=== PATIENT | female | born 1985 | race Caucasian/White ===

== ENCOUNTER 2016-11-21 16:17 | Emergency (ER) | payer MEDICAID ==
[2016-11-21] MEDS ORDERED: HYDROmorphone 0.5 MG/0.5 ML Syringe IVPUSH ONE (17:11)
[2016-11-21] MEDS ORDERED: Ketorolac 30 MG/ML SDV IVPUSH ONE (17:12)
--- NOTE | 2016-11-21 17:13 | EDM.PDOC ---
ED HPI GENERAL MEDICAL PROBLEM - General Chief Complaint: Abdominal Pain Stated Complaint: Pelvic pain Time Seen by Provider: 11/21/16 17:00 Source of Information: Reports: Patient, Old Records, RN Notes Reviewed History Limitations: Reports: No Limitations - History of Present Illness INITIAL COMMENTS - FREE TEXT/NARRATIVE: 31 year old female presents to the ED today with complaints of severe, worsening , sharp, left pelvic pain. She was evaluated in the clinic today by Caryl ROJAS. She was found to have a large left ovarian cyst. She was discharged on Tylenol #3 and instructions to f/u next week. 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 She was diaphoretic and "shaking." She is 3 para 2. She has a history of 1 miscarriage. She has a history of ovarian cysts and left ovarian torsion. She feels mildly nauseated. No vomiting. She reports 2-3 week history of frequency and urgency with urination. No fever or chills. Workup in clinic today included CBC, CMP, CRP, and UA. Labs were normal except urine reveals trace leukocytes. This was sent for culture. Antibiotics were not ordered. Hcg was negative. She had a nonOB transvaginal ultrasound. She is scheduled to see Meliza Samples on Friday of next week followed by Dr. Malhotra on Friday if needed. Left Lower Abdomen Pain Score (Numeric/FACES): 2 - Related Data Allergies Allergy/AdvReac Type Severity Reaction Status Date / Time nickel Allergy Rash Verified 10/07/14 12:08 tramadol Allergy Itching Verified 10/07/14 12:08 Home Meds: Home Meds Acetaminophen/oxyCODONE [Percocet 325-5 MG] 2 tab PO Q4H PRN #45 tablet [Rx] Ibuprofen [Motrin] 600 mg PO Q6H PRN #0 tablet 09/09/14 [Rx] Minocycline [Minocin] 100 mg PO BID #20 cap 10/07/14 [Rx] Ibuprofen 800 mg PO TID PRN #30 tablet 11/21/16 [Rx] oxyCODONE HCl/Acetaminophen [Oxycodone-Acetaminophen 5-325] 1 - 2 each PO Q4H PRN #20 tablet 11/21/16 [Rx] Past Medical History HEENT History: Reports: Impaired Vision Cardiovascular History: Reports: High Cholesterol Other Genitourinary History: none 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 Denies: Fever, Chills Respiratory: Reports: No Symptoms. Denies: Shortness of Breath Cardiovascular: Reports: No Symptoms. Denies: Chest Pain GI/Abdominal: Reports: Nausea. Denies: Constipation, Diarrhea, Vomiting : Reports: Frequency, Urgency, Other (pelvic pain). Denies: Flank Pain ED EXAM, RENAL/ - Physical Exam Exam: See Below Exam Limited By: No Limitations General Appearance: Alert, WD/WN, Anxious, Mild Distress Respiratory/Chest: No Respiratory Distress, Lungs Clear, Normal Breath Sounds Cardiovascular: Regular Rate, Rhythm GI/Abdominal: Normal Bowel Sounds, Soft, Non-Tender (Female) Exam: Other (tendeness with palpation to left pelvic region ) Back Exam: Normal Inspection, Full Range of Motion. No: CVA Tenderness (L), CVA Tenderness (R) Course - Vital Signs Last Recorded V/S: Last Vital Signs Temp 97.6 F 11/21/16 16:21 Pulse 60 11/21/16 16:21 Resp 12 11/21/16 16:21 BP 110/83 11/21/16 16:21 Pulse Ox 100 11/21/16 16:21 - Orders/Labs/Meds Labs: Laboratory Tests 11/21/16 Range/Units 17:22 Urine Color Yellow (Yellow) Urine Appearance Slt cloudy H (Clear) Urine pH 8.0 (5.0-8.0) Ur Specific [place] 1.025 (1.005-1.030) Urine Protein Negative (Negative) Urine Glucose (UA) Negative (Negative) Urine Ketones Negative (Negative) Urine Occult Blood Negative (Negative) Urine Nitrite Negative (Negative) Urine Bilirubin Negative (Negative) Urine Urobilinogen 0.2 (0.2-1.0) Ur Leukocyte Esterase Negative (Negative) Urine RBC 0-5 (0-5) /hpf Urine WBC 0-5 (0-5) /hpf Ur Epithelial Cells 0-5 (0-5) /hpf Amorphous Sediment Moderate H (NOT SEEN) /hpf Urine Bacteria Rare (FEW) /hpf Urine Mucus Not seen (FEW) /hpf Meds: Medications Discontinued Medications Generic Name Dose Route Start Last Admin Trade Name Freq PRN Reason Stop Dose Admin Hydromorphone HCl 0.5 mg 11/21/16 17:11 11/21/16 17:24 Dilaudid IVPUSH 11/21/16 17:12 0.5 mg ONETIME ONE Administration Ketorolac Tromethamine 30 mg 11/21/16 17:12 11/21/16 17:27 Toradol IVPUSH 11/21/16 17:13 30 mg ONETIME ONE Administration Ondansetron HCl 4 mg 11/21/16 18:46 Zofran Odt PO 11/21/16 18:47 ONETIME ONE - Re-Assessments/Exams Free Text/Narrative Re-Assessment/Exam: Reviewed labs from clinic visit today. Repeat UA ordered as patient had trace leukocyte and does have symptoms. UA is negative. Repeat ultrasound was ordered to evaluate for possibility of ruptured cyst or ovarian torsion. US read by Dr. Courtney, impression: 1. Stable cyst within the left adnexa or ovary from previous study performed earlier on the same day. Minimal fluid is seen next to the cyst which is stable. 2. Other portions of the ovaries are also stable. Patient reassured. Will place her on Ibuprofen and Percocet. She was thoroughly educated on medication side effects. Instructed to f/u as directed. Discharge instructions as documented. Departure - Departure Time of Disposition: 18:45 Disposition: Home, Self-Care 01 Condition: Good Clinical Impression: Ovarian cyst Qualifiers: Laterality: left Qualified Code(s): N83.202 - Unspecified ovarian cyst, left side - Discharge Information Prescriptions: Ibuprofen 800 mg PO TID PRN #30 tablet PRN Reason: Pain oxyCODONE HCl/Acetaminophen [Oxycodone-Acetaminophen 5-325] 1 - 2 each PO Q4H PRN #20 tablet PRN Reason: Pain Referrals: Meliza Ramos PA [Primary Care Provider] - Forms: ED Department Discharge Additional Instructions: Rest, heating pad to abdomen as tolerated Ibuprofen 800mg 3 times a day consistently for 5-7 days Percocet 1-2 tabs every 4-6 hours as needed for pain not relieved by Ibuprofen Follow-up with Meliza Ramos and Dr. Malhotra as scheduled next week Return to Er with any new or worsening symptoms No driving today No driving for at least 6-8 hours after taking Percocet
--- NOTE | 2016-11-21 18:34 | US ---
Pelvic ultrasound: Multiple real-time images were obtained transvaginally. Comparison: Previous pelvic ultrasound performed earlier on the same date (1:20 PM) Left adnexal or ovarian cyst is again seen. This measures 7.1 x 4.7 x 7.8 cm. This cyst is felt to be fairly stable from prior study when allowing for slight differences in measurement technique. Cyst shows a small amount of debris. Minimal free fluid is seen next to the cyst which is stable. Right ovary is unremarkable. Impression: 1. Stable cyst within the left adnexa or ovary from previous study performed earlier on the same day. Minimal fluid is seen next to the cyst which is stable. 2. Other portions of the ovaries are also stable. Diagnostic code #3
[2016-11-21] MEDS ORDERED: Ondansetron 4 MG Tab.DIS PO ONE (18:46)
[2016-11-21 19:18] VITALS: BP 117/75
== END 2016-11-21 19:15 | disposition home or self-care (01) ==
LOC: JD.ED 16:17 → SUPCPDRO 16:17 → JD.ED 19:15
DX: N83.202 Unspecified ovarian cyst, left side (principal); E78.00 Pure hypercholesterolemia, unspecified; M19.90 Unspecified osteoarthritis, unspecified site; Z79.899 Other long term (current) drug therapy; Z88.8 Allergy status to other drugs, medicaments and biological substances; Z91.048 Other nonmedicinal substance allergy status
CPT/HCPCS: 76857; 81001; 96374; 96375; 99285; A9270; J1170; J1885; 99284

== ENCOUNTER 2017-09-01 00:47 | Emergency (ER) | payer MEDICAID ==
[2017-09-01 00:57] VITALS: BP 141/99
--- NOTE | 2017-09-01 03:17 | EDM.PDOC ---
ED HPI GENERAL MEDICAL PROBLEM - General Chief Complaint: Laceration Stated Complaint: RIGHT INDEX FINGER CUT Time Seen by Provider: 09/01/17 03:06 Source of Information: Reports: Patient History Limitations: Reports: No Limitations - History of Present Illness INITIAL COMMENTS - FREE TEXT/NARRATIVE: The patient states that she suffered a laceration to the tip of her right index finger when using a mandolin, cutting rhubarb at home, around 23:30. She came to the ED because she could not get the bleeding to stop, however, here in the ED, the bleeding has stopped. She is otherwise uninjured. The patient is not certain when her last tetanus vaccination was, but she is certain that her vaccinations are up-to-date. The patient's PCP is Maricel Garcia. 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 Exploratory laparoscopy for endometriosis (none found).) Social & Family History - Family History Family Medical History: Noncontributory - Tobacco Use Smoking Status *Q: Never Smoker Second Hand Smoke Exposure: No - Caffeine Use Caffeine Use: Reports: None - Alcohol Use Alcohol Use History: Yes Alcohol Use Frequency: Socially - Recreational Drug Use Recreational Drug Use: No - Living Situation & Occupation Living situation: Reports: , with Spouse, with Family (2 kids) Occupation: Unemployed ED ROS GENERAL - Review of Systems Review Of Systems: ROS reveals no pertinent complaints other than HPI. ED EXAM, SKIN/RASH Exam: See Below Exam Limited By: No Limitations General Appearance: Alert, WD/WN, No Apparent Distress Extremities: Other (Tiny avulsion laceration, measuring only about 2 mm across, at the tip of the right second finger. There is a small flap of skin still attached, that appears to be devitalized. The nail is not involved. Neurovascular status of the right second finger is intact.) Course - Vital Signs Last Recorded V/S: Last Vital Signs Temp 37.1 C 09/01/17 00:54 Pulse 84 09/01/17 00:54 Resp 18 09/01/17 00:54 BP 141/99 H 09/01/17 00:54 Pulse Ox 97 09/01/17 00:54 - Re-Assessments/Exams Free Text/Narrative Re-Assessment/Exam: 09/01/17 03:13 The laceration to the tip of the patient's right index finger is really a small avulsion laceration. There is a small piece of skin attached to the edge of the wound, but it is devascularized and will not survive. The wound is far too small to place a suture through it. We had considered applying Dermabond, however, I suspect that more glue would get into the wound than on it. I'm recommending a simple bandage to protect the sensitivity of the tip of the finger, which should improve over the next few days. Departure - Departure Time of Disposition: 03:14 Disposition: Home, Self-Care 01 Condition: Good Clinical Impression: Laceration of finger of right hand without damage to nail - Discharge Information Instructions: Laceration Care, Adult Referrals: Maricel Garcia PA-C [Primary Care Provider] - Forms: ED Department Discharge Additional Instructions: You were seen in the emergency room for a laceration to the tip of your right index finger. On evaluation, the wound is too small to suture, and the small piece of skin that was cut will not survive. The wound clean with ordinary soap and water. Pat dry, then protect the tip with an ordinary Band-Aid, daily. Replace the Band-Aid if it gets dirty. Take [id number] Tylenol or ibuprofen as needed for discomfort. If any other problems, please do not hesitate to return to the ER.
== END 2017-09-01 03:23 | disposition home or self-care (01) ==
LOC: JD.ED 00:47
DX: S61.210A Laceration without foreign body of right index finger without damage to nail, initial encounter (principal); Z91.09 Other allergy status, other than to drugs and biological substances; Z88.6 Allergy status to analgesic agent; W22.8XXA Striking against or struck by other objects, initial encounter
CPT/HCPCS: 99282; 99283

== ENCOUNTER 2017-11-30 14:11 | Emergency (ER) | payer MEDICAID ==
[2017-11-30 14:36] VITALS: BP 120/84
--- NOTE | 2017-11-30 15:12 | EDM.PDOC ---
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 Patient is approximately 5 weeks . Her last menstrual period October 17. She is a . She had a D&C at 8 weeks due to a miscarriage. States this is a planned . She has an appointment to see her OB on December 29. OB will be Dr. Myers. She has not yet seen an OB for this . Review of her records show that she is blood type A positive. Patient reports this morning she woke up and experience cramping to her right groin. She states it is improving, pain currently 2/10. She has also appreciated blood which was on her panty liner. She states that the bleeding is improving as well. She is reporting nausea but no lightheadedness, dizziness, vomiting or any syncope. She states that she has a history of having cyst with that resolved further along in her . Previous surgeries include a , cystectomy and ex lap for possible endometriosis. 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 Other Musculoskeletal History: arthritis Psychiatric History: Reports: Anxiety, Depression - Past Surgical History HEENT Surgical History: Reports: Oral Surgery Female Surgical History: Reports: Section, D&C, Other (See Below) Social & Family History - Family History Family Medical History: Noncontributory - Tobacco Use Smoking Status *Q: Never Smoker - Caffeine Use Caffeine Use: Reports: Coffee - Recreational Drug Use Recreational Drug Use: No - Living Situation & Occupation Living situation: Reports: , with Spouse, with Family (2 kids) Occupation: Unemployed ED ROS GENERAL - Review of Systems Review Of Systems: See Below GI/Abdominal: Reports: Nausea. Denies: Abdominal Pain, Vomiting : Reports: Pain (right pelvis). Denies: Dysuria Neurological: Denies: Dizziness, Syncope ED EXAM - Physical Exam Exam: See Below Exam Limited By: No Limitations General Appearance: Alert, WD/WN, No Apparent Distress Respiratory/Chest: No Respiratory Distress, Lungs Clear, Normal Breath Sounds Cardiovascular: Normal Peripheral Pulses, Regular Rate, Rhythm, No Murmur GI/Abdominal Exam: Normal Bowel Sounds, Soft, Non-Tender (Female) Exam: Normal Speculum Exam, Vaginal Bleeding, Other (gravid cervix) . No: Cervical Dilatation, Products of Conception Neurological: Alert, Oriented, Normal Cognition Psychiatric: Normal Affect, Normal Mood Skin Exam: Warm, Dry, Normal Color Course - Vital Signs Last Recorded V/S: Last Vital Signs Temp 98.2 F 11/30/17 14:35 Pulse 71 11/30/17 14:35 Resp 20 11/30/17 14:35 BP 120/84 11/30/17 14:35 Pulse Ox 100 11/30/17 14:35 - Orders/Labs/Meds Orders: Active Orders 24 hr Category Date Time Status Pelvic Exam, Set Up [RC] ASDIRECTED Care 11/30/17 16:49 Ordered OB Transvaginal [US] Stat Exams 11/30/17 15:31 Taken CULTURE URINE [RM] Stat Lab 11/30/17 17:12 Ordered UA W/MICROSCOPIC [URIN] Stat Lab 11/30/17 15:41 Ordered Labs: Laboratory Tests 11/30/17 11/30/17 11/30/17 Range/Units 15:15 15:15 15:41 WBC 7.49 (3.98-10.04) K/mm3 RBC 4.65 (3.98-5.22) M/mm3 Hgb 14.6 (11.2-15.7) gm/L Hct 43.7 (34.1-44.9) % MCV 94.0 (79.4-94.8) fl MCH 31.4 (25.6-32.2) pg MCHC 33.4 (32.2-35.5) g/dl RDW Std Deviation 42.1 (36.4-46.3) fL Plt Count 293 (182-369) K/mm3 MPV 9.7 (9.4-12.3) fl Neut % (Auto) 65.5 (34.0-71.1) % Lymph % (Auto) 24.7 (19.3-51.7) % [place] % (Auto) 7.7 (4.7-12.5) % Eos % (Auto) 0.9 (0.7-5.8) Baso % (Auto) 1.1 (0.1-1.2) % Neut # (Auto) 4.90 (1.56-6.13) K/mm3 Lymph # (Auto) 1.85 (1.18-3.74) K/mm3 [place] # (Auto) 0.58 H (0.24-0.36) K/mm3 Eos # (Auto) 0.07 (0.04-0.36) K/mm3 Baso # (Auto) 0.08 (0.01-0.08) K/mm3 HCG, Quant 192.0 mIU/mL Urine Color Yellow (Yellow) Urine Appearance Clear (Clear) Urine pH 6.5 (5.0-8.0) Ur Specific [place] 1.020 (1.005-1.030) Urine Protein Negative (Negative) Urine Glucose (UA) Negative (Negative) Urine Ketones Negative (Negative) Urine Occult Blood 3+ H (Negative) Urine Nitrite Negative (Negative) Urine Bilirubin Negative (Negative) Urine Urobilinogen 0.2 (0.2-1.0) Ur Leukocyte Esterase Negative (Negative) Urine RBC 0-5 (0-5) /hpf Urine WBC 0-5 (0-5) /hpf Ur Epithelial Cells 0-5 (0-5) /hpf Urine Bacteria Not seen (FEW) /hpf Urine Mucus Not seen (FEW) /hpf - Radiology Interpretation Free Text/Narrative:: Transvaginal ultrasound impression per vrad: gestational sac within uterus without evidence of a pole. Considerations would include early , however other etiologies such as miscarriage or ectopic cannot be completely excluded. - Re-Assessments/Exams Free Text/Narrative Re-Assessment/Exam: 11/30/17 17:00 Reviewed the labs and imaging with the patient. She states she is only having minor discomfort now. The pain as a 1 or 2 out of 10. She states that this does feel similar to cysts she's had in the past. Plan will be to perform a pelvic exam. I will then Contact OB on-call. 11/30/17 17:[address] Malhotra. Recommend pelvic rest, follow up in clinic Friday or Friday. Reviewed this with the patient. Will discharge home. Discharge instructions as documented. Departure - Departure Time of Disposition: 17:15 Disposition: Home, Self-Care 01 Condition: Fair Clinical Impression: Vaginal bleeding during - Discharge Information *PRESCRIPTION DRUG MONITORING PROGRAM REVIEWED*: No *COPY OF PRESCRIPTION DRUG MONITORING REPORT IN PATIENT DOROTEO: No Referrals: Maricel Garcia PA-C [Primary Care Provider] - Vijaya Myers MD [Physician] - Forms: ED Department Discharge Additional Instructions: Pelvic rest. Make sure you are drinking plenty of fluids. Follow-up with Dr. Myers Friday or Friday. you will need to have your labs rechecked. May take [id number] Tylenol as needed pain. Please return to the ER for symptoms change or worsen. - My Orders Last 24 Hours: My Active Orders 11/30/17 15:31 OB Transvaginal [US] Stat 11/30/17 15:41 UA W/MICROSCOPIC [URIN] Stat 11/30/17 16:49 Pelvic Exam, Set Up [RC] ASDIRECTED 11/30/17 17:12 CULTURE URINE [RM] Stat - Assessment/Plan Last 24 Hours: My Active Orders 11/30/17 15:31 OB Transvaginal [US] Stat 11/30/17 15:41 UA W/MICROSCOPIC [URIN] Stat 11/30/17 16:49 Pelvic Exam, Set Up [RC] ASDIRECTED 11/30/17 17:12 CULTURE URINE [RM] Stat
== END 2017-11-30 17:34 | disposition home or self-care (01) ==
LOC: JD.ED 14:11
DX: O20.9 Hemorrhage in early pregnancy, unspecified (principal); O99.341 Other mental disorders complicating pregnancy, first trimester; F41.9 Anxiety disorder, unspecified; F32.9 Major depressive disorder, single episode, unspecified; O99.281 Endocrine, nutritional and metabolic diseases complicating pregnancy, first trimester; E78.00 Pure hypercholesterolemia, unspecified; Z3A.01 Less than 8 weeks gestation of pregnancy; Z79.899 Other long term (current) drug therapy; Z88.5 Allergy status to narcotic agent; Z88.8 Allergy status to other drugs, medicaments and biological substances
CPT/HCPCS: 36415; 76817; 81001; 84702; 85025; 87086; 99284-25

== ENCOUNTER 2018-09-18 05:36 | Inpatient (IN) | payer MEDICAID ==
[~2018-09-18 05:36] MED LIST: Sodium Chloride 0.9% 10 ML Syringe FLUSH PRN
[2018-09-18] MEDS ORDERED: Citric Acid/Sodium Citrate Solution 30 ML Cup PO ONE (06:30)
[2018-09-18] MEDS ORDERED: Metoclopramide 10 MG/2 ML SDV IVPUSH ONE (06:30)
[2018-09-18] MEDS: Lactated Ringers 1,000 ML IV SCH ×4 (06:45→17:16)
[2018-09-18] MEDS ORDERED: Nalbuphine 10 MG/1 ML Vial IVPUSH PRN (07:00)
[2018-09-18] MEDS ORDERED: Ondansetron 4 MG/2 ML SDV IVPUSH PRN ×2 (07:00→07:23)
--- NOTE | 2018-09-18 07:10 | PCM.PNLD ---
Labor Progress Note - VS & Meds Vital Signs: Last Vital Signs Temp 36.6 C 09/18/18 05:45 Pulse 84 09/18/18 05:45 Resp 16 09/18/18 05:45 BP 121/86 09/18/18 05:45 Pulse Ox 98 09/18/18 05:45 Active Medications: Current Medications Lactated Ringer's (Ringers, Lactated) 1,000 mls @ 125 mls/hr IV ASDIRECTED [facility] Last Admin: 09/18/18 06:45 Dose: 125 mls/hr Oxytocin/Lactated Ringer's (Pitocin In Lr 10 Units/1,000 Ml) 10 unit in 1,000 mls @ 100 mls/hr IV ASDIRECTED NASEEM Sodium Chloride (Saline Flush) 10 ml FLUSH ASDIRECTED PRN PRN Reason: Keep Vein Open Discontinued Medications Citric Acid/Sodium Citrate (Bicitra Solution) 30 ml PO ONETIME ONE Stop: 09/18/18 06:31 Cefazolin Sodium/Dextrose 2 gm (/ Premix) 50 mls @ 100 mls/hr IV ONETIME ONE Stop: 09/18/18 07:59 Metoclopramide HCl (Reglan) 10 mg IVPUSH ONETIME ONE Stop: 09/18/18 06:31 - Uterine Contractions Uterine Monitoring Mode: External [place] Contraction Intensity: Irritability Uterine Resting Tone: Soft - Monitoring Monitor Mode: External Ultrasound Heart Rate (FHR) Baseline: 135 Heart Rate (FHR) Variability: Moderate (6-25 bmp) Accelerations: Present, 15x15 Decelerations: None Strip Review: Category I - Vaginal Exam Dilation (cm): 3 Effacement (Percent): 50 Station: -3 Cervical Position: Midposition - Labor Progress (Free Text) Labor Progress: Patient presented for planned ECV. Found to be VTX. Will start pitocin and then proceed with AROM when able. GBS negative.
[2018-09-18] MEDS ORDERED: ePHEDrine 50 MG/ML SDV IVPUSH PRN (07:23)
[2018-09-18] MEDS ORDERED: fentaNYL 100 MCG/2 ML SDV EPIDUR PRN (07:23)
[2018-09-18] MEDS ORDERED: diphenhydrAMINE 50 MG/ML SDV IVPUSH PRN (07:23)
[2018-09-18] MEDS ORDERED: ceFAZolin 2 GM in Premix Bag 1 BAG IV ONE ×2 (07:30→19:11)
[2018-09-18] MEDS ORDERED: Oxytocin/Lactated Ringers 10 UNIT/1,000 ML BAG IV SCH (07:30)
[2018-09-18] MEDS ORDERED: Bupivacaine/fentaNYL/NS 100 ML Bag EPIDUR SCH (07:30)
[2018-09-18] MEDS: Oxytocin/Lactated Ringers 10 UNIT/1,000 ML BAG IV SCH ×2 (07:34→20:09)
--- NOTE | 2018-09-18 09:57 | PCM.PNLD ---
Labor Progress Note - VS & Meds Vital Signs: Last Vital Signs Temp 36.6 C 09/18/18 05:45 Pulse 84 09/18/18 05:45 Resp 16 09/18/18 05:45 BP 121/86 09/18/18 05:45 Pulse Ox 98 09/18/18 05:45 Active Medications: Current Medications Diphenhydramine HCl (Benadryl) 25 mg IVPUSH Q6H PRN PRN Reason: Pruritis Ephedrine Sulfate (Ephedrine Sulfate) 5 mg IVPUSH ASDIRECTED PRN PRN Reason: Hypotension Fentanyl (Sublimaze) 100 mcg EPIDUR ONETIME PRN PRN Reason: Pain Fentanyl/Bupivacaine HCl (Fentanyl/Bupivacaine/Ns 2 Mcg-0.125% 100 Ml) 100 ml EPIDUR ASDIRECTED NASEEM Lactated Ringer's (Ringers, Lactated) 1,000 mls @ 125 mls/hr IV ASDIRECTED NASEEM Last Admin: 09/18/18 06:45 Dose: 125 mls/hr Oxytocin/Lactated Ringer's (Pitocin In Lr 10 Units/1,000 Ml) 10 unit in 1,000 mls @ 100 mls/hr IV ASDIRECTED NASEEM Oxytocin/Lactated Ringer's (Pitocin In Lr 10 Units/1,000 Ml) 10 unit in 1,000 mls @ 12 mls/hr IV TITRATE NASEEM; Protocol Last Titration: 09/18/18 09:30 Dose: 8 munits/min, 48 mls/hr Nalbuphine HCl (Nubain) 10 mg IVPUSH Q2H PRN PRN Reason: Pain Ondansetron HCl (Zofran) 4 mg IVPUSH Q4H PRN PRN Reason: Nausea/Vomiting Ondansetron HCl (Zofran) 4 mg IVPUSH ONETIME PRN PRN Reason: Nausea/Vomiting Sodium Chloride (Saline Flush) 10 ml FLUSH ASDIRECTED PRN PRN Reason: Keep Vein Open Discontinued Medications Citric Acid/Sodium Citrate (Bicitra Solution) 30 ml PO ONETIME ONE Stop: 09/18/18 06:31 Cefazolin Sodium/Dextrose 2 gm (/ Premix) 50 mls @ 100 mls/hr IV ONETIME ONE Stop: 09/18/18 07:59 Metoclopramide HCl (Reglan) 10 mg IVPUSH ONETIME ONE Stop: 09/18/18 06:31 - Uterine Contractions Uterine Monitoring Mode: External [place] Contraction Intensity: Mild to Moderate Uterine Resting Tone: Soft - Monitoring Monitor Mode: External Ultrasound Heart Rate (FHR) Baseline: 140 Heart Rate (FHR) Variability: Moderate (6-25 bmp) Accelerations: Present, 15x15 Decelerations: None Strip Review: Category I - Vaginal Exam Dilation (cm): 3 Effacement (Percent): 50 Station: -3 Cervical Position: Midposition - Labor Progress (Free Text) Labor Progress: Doing well. On 8 of pitocin. Baby still VTX presentation. AROM performed, but with only scant/small amount of fluid. Will continue to watch closely
--- NOTE | 2018-09-18 12:22 | PCM.PREANE ---
Preanesthetic Assessment - Anesthesia/Transfusion/Family Hx Anesthesia History: Prior Anesthesia Without Reaction Family History of Anesthesia Reaction: No Transfusion History: No Prior Transfusion(s) - Review of Systems General: No Symptoms Pulmonary: No Symptoms Cardiovascular: No Symptoms Gastrointestinal: Other (GERD mostly in the evenings. ) Neurological: No Symptoms (Reports previous painful epidural insertion and back pain that did resolve. ) Other: Reports: Anxiety - Physical Assessment NPO Status Date: 09/17/18 NPO Status Time: 23:00 O2 Sat by Pulse Oximetry: 98 Respiratory Rate: 16 Vital Signs: Last Vital Signs Temp 36.6 C 09/18/18 05:45 Pulse 84 09/18/18 05:45 Resp 16 09/18/18 05:45 BP 121/86 09/18/18 05:45 Pulse Ox 98 09/18/18 05:45 Height: 1.6 m Weight: 92.986 kg ASA Class: 2 Mental Status: Alert & Oriented x3 Airway Class: Mallampati = 1 Dentition: Reports: Normal Dentition Thyro-Mental Finger Breadths: 3 Mouth Opening Finger Breadths: 3 ROM/Head Extension: Full Lungs: Clear to Auscultation, Normal Respiratory Effort Cardiovascular: Regular Rate, Regular Rhythm - Lab Values: Laboratory Last Values WBC 9.03 K/mm3 (3.98-10.04) 09/18/18 06:25 RBC 3.79 M/mm3 (3.98-5.22) L 09/18/18 06:25 Hgb 11.1 gm/L (11.2-15.7) L D 09/18/18 06:25 Hct 35.3 % (34.1-44.9) 09/18/18 06:25 MCV 93.1 fl (79.4-94.8) 09/18/18 06:25 MCH 29.3 pg (25.6-32.2) 09/18/18 06:25 MCHC 31.4 g/dl (32.2-35.5) L 09/18/18 06:25 RDW Std Deviation 45.0 fL (36.4-46.3) 09/18/18 06:25 Plt Count 223 K/mm3 (182-369) 09/18/18 06:25 MPV 11.3 fl (9.4-12.3) 09/18/18 06:25 Neut % (Auto) 60.9 % (34.0-71.1) 09/18/18 06:25 Lymph % (Auto) 27.6 % (19.3-51.7) 09/18/18 06:25 [place] % (Auto) 9.9 % (4.7-12.5) 09/18/18 06:25 Eos % (Auto) 0.6 (0.7-5.8) L 09/18/18 06:25 Baso % (Auto) 0.6 % (0.1-1.2) 09/18/18 06:25 Neut # (Auto) 5.51 K/mm3 (1.56-6.13) 09/18/18 06:25 Lymph # (Auto) 2.49 K/mm3 (1.18-3.74) 09/18/18 06:25 [place] # (Auto) 0.89 K/mm3 (0.24-0.36) H 09/18/18 06:25 Eos # (Auto) 0.05 K/mm3 (0.04-0.36) 09/18/18 06:25 Baso # (Auto) 0.05 K/mm3 (0.01-0.08) 09/18/18 06:25 Blood Type A POSITIVE 09/18/18 06:25 Gel Antibody Screen Negative 09/18/18 06:25 - Allergies Allergies/Adverse Reactions: Allergies Allergy/AdvReac Type Severity Reaction Status Date / Time nickel Allergy Rash Verified 10/07/14 12:08 tramadol Allergy Itching Verified 10/07/14 12:08 - Acknowledgements Anesthesia Type Planned: Epidural Pt an Appropriate Candidate for the Planned Anesthesia: Yes Alternatives and Risks of Anesthesia Discussed w Pt/Guardian: Yes Pt/Guardian Understands and Agrees with Anesthesia Plan: Yes Additional Comments: TOLAC 1 previous vaginal 1 previous for Breech Position PreAnesthesia Questionnaire - Past Health History Medical/Surgical History: Denies Medical/Surgical History HEENT History: Reports: Impaired Vision Cardiovascular History: Reports: High Cholesterol Other Genitourinary History: none 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: Reports: Polycystic Ovaries, Other OB/BYN History: cyst removed Other Musculoskeletal History: arthritis Psychiatric History: Reports: Anxiety, Depression - Past Surgical History HEENT Surgical History: Reports: Oral Surgery Female Surgical History: Reports: Section, D&C, Other (See Below) - SUBSTANCE USE Smoking Status *Q: Never Smoker Second Hand Smoke Exposure: No Recreational Drug Use History: No - HOME MEDS Home Medications: Home Meds Doxylamine Succinate [Unisom] 25 mg PO 09/18/18 [History] Escitalopram [Lexapro] 10 mg PO DAILY 09/18/18 [History] Pnv No.95/Ferrous Fum/Folic AC [ Caplet] 1 tab PO DAILY 09/18/18 [ History] Ranitidine HCl [Zantac 75] 75 mg PO DAILY PRN 09/18/18 [History] buPROPion HCl [Wellbutrin Xl] 300 mg PO DAILY 09/18/18 [History] - CURRENT (IN HOUSE) MEDS Current Meds: Current Medications Diphenhydramine HCl (Benadryl) 25 mg IVPUSH Q6H PRN PRN Reason: Pruritis Ephedrine Sulfate (Ephedrine Sulfate) 5 mg IVPUSH ASDIRECTED PRN PRN Reason: Hypotension Fentanyl (Sublimaze) 100 mcg EPIDUR ONETIME PRN PRN Reason: Pain Fentanyl/Bupivacaine HCl (Fentanyl/Bupivacaine/Ns 2 Mcg-0.125% 100 Ml) 100 ml EPIDUR ASDIRECTED NASEEM Lactated Ringer's (Ringers, Lactated) 1,000 mls @ 125 mls/hr IV ASDIRECTED NASEEM Last Admin: 09/18/18 06:45 Dose: 125 mls/hr Oxytocin/Lactated Ringer's (Pitocin In Lr 10 Units/1,000 Ml) 10 unit in 1,000 mls @ 100 mls/hr IV ASDIRECTED NASEEM Oxytocin/Lactated Ringer's (Pitocin In Lr 10 Units/1,000 Ml) 10 unit in 1,000 mls @ 12 mls/hr IV TITRATE NASEEM; Protocol Last Titration: 09/18/18 11:00 Dose: 10 munits/min, 60 mls/hr Nalbuphine HCl (Nubain) 10 mg IVPUSH Q2H PRN PRN Reason: Pain Ondansetron HCl (Zofran) 4 mg IVPUSH Q4H PRN PRN Reason: Nausea/Vomiting Ondansetron HCl (Zofran) 4 mg IVPUSH ONETIME PRN PRN Reason: Nausea/Vomiting Sodium Chloride (Saline Flush) 10 ml FLUSH ASDIRECTED PRN PRN Reason: Keep Vein Open Discontinued Medications Citric Acid/Sodium Citrate (Bicitra Solution) 30 ml PO ONETIME ONE Stop: 09/18/18 06:31 Cefazolin Sodium/Dextrose 2 gm (/ Premix) 50 mls @ 100 mls/hr IV ONETIME ONE Stop: 09/18/18 07:59 Metoclopramide HCl (Reglan) 10 mg IVPUSH ONETIME ONE Stop: 09/18/18 06:31
--- NOTE | 2018-09-18 15:36 | PCM.DEL ---
L & D Note - General Info Date of Service: 09/18/18 - Delivery Note Labor: Spontaneous Delivery Outcome: Livebirth Delivery Method: Spontaneous Vaginal Delivery-Single Delivery Mode: Spontaneous Presentation: Right Occiput Anterior (BEA) Nuchal Cord: None Anesthesia Type: Epidural Amniotic Fluid Description: Clear Episiotomy Type: None Laceration: None Placenta: Intact, Spontaneous Cord: 3 Vessels Estimated Blood Loss: 200 Resuscitation Needed: Yes [place]: Bulb Syringe, Stimulated, Warmed, [place] Used, Warmer Used Delivery Comments (Free Text/Narrative):: Patient found to be complete and began pushing. With maternal pushing effort head delivered from an BEA presentation. No nuchal cord present. With gentle downward traction the shoulders and body delivered. Infant placed on maternal abdomen. Cord clamped and cut. Cord blood obtained. Placenta allowed time to separate and expelled intact. Inspection of the perineum showed no lacerations - General Info Date of Service: 09/18/18 - Patient Data Vitals - Most Recent: Last Vital Signs Temp 36.6 C 09/18/18 05:45 Pulse 84 09/18/18 05:45 Resp 16 09/18/18 12:22 BP 121/86 09/18/18 05:45 Pulse Ox 98 09/18/18 12:22 Weight - Most Recent: 92.986 kg I&O - Last 24 Hours: Intake & Output 09/18/18 09/18/18 09/18/18 06:59 14:59 22:59 Intake Total 0 Balance 0 Lab Results Last 24 Hours: Laboratory Results - last 24 hr 09/18/18 09/18/18 Range/Units 06:25 06:25 WBC 9.03 (3.98-10.04) K/mm3 RBC 3.79 L (3.98-5.22) M/mm3 Hgb 11.1 L D (11.2-15.7) gm/L Hct 35.3 (34.1-44.9) % MCV 93.1 (79.4-94.8) fl MCH 29.3 (25.6-32.2) pg MCHC 31.4 L (32.2-35.5) g/dl RDW Std Deviation 45.0 (36.4-46.3) fL Plt Count 223 (182-369) K/mm3 MPV 11.3 (9.4-12.3) fl Neut % (Auto) 60.9 (34.0-71.1) % Lymph % (Auto) 27.6 (19.3-51.7) % [place] % (Auto) 9.9 (4.7-12.5) % Eos % (Auto) 0.6 L (0.7-5.8) Baso % (Auto) 0.6 (0.1-1.2) % Neut # (Auto) 5.51 (1.56-6.13) K/mm3 Lymph # (Auto) 2.49 (1.18-3.74) K/mm3 [place] # (Auto) 0.89 H (0.24-0.36) K/mm3 Eos # (Auto) 0.05 (0.04-0.36) K/mm3 Baso # (Auto) 0.05 (0.01-0.08) K/mm3 Blood Type A POSITIVE Gel Antibody Screen Negative Med Orders - Current: Current Medications Diphenhydramine HCl (Benadryl) 25 mg IVPUSH Q6H PRN PRN Reason: Pruritis Ephedrine Sulfate (Ephedrine Sulfate) 5 mg IVPUSH ASDIRECTED PRN PRN Reason: Hypotension Fentanyl (Sublimaze) 100 mcg EPIDUR ONETIME PRN PRN Reason: Pain Last Admin: 09/18/18 13:40 Dose: 100 mcg Fentanyl/Bupivacaine HCl (Fentanyl/Bupivacaine/Ns 2 Mcg-0.125% 100 Ml) 100 ml EPIDUR ASDIRECTED NASEEM Last Admin: 09/18/18 13:39 Dose: 100 ml Lactated Ringer's (Ringers, Lactated) 1,000 mls @ 125 mls/hr IV ASDIRECTED NASEEM Last Admin: 09/18/18 14:59 Dose: 999 mls/hr Oxytocin/Lactated Ringer's (Pitocin In Lr 10 Units/1,000 Ml) 10 unit in 1,000 mls @ 100 mls/hr IV ASDIRECTED NASEEM Oxytocin/Lactated Ringer's (Pitocin In Lr 10 Units/1,000 Ml) 10 unit in 1,000 mls @ 12 mls/hr IV TITRATE NASEEM; Protocol Last Titration: 09/18/18 15:00 Dose: 16 munits/min, 96 mls/hr Nalbuphine HCl (Nubain) 10 mg IVPUSH Q2H PRN PRN Reason: Pain Ondansetron HCl (Zofran) 4 mg IVPUSH Q4H PRN PRN Reason: Nausea/Vomiting Ondansetron HCl (Zofran) 4 mg IVPUSH ONETIME PRN PRN Reason: Nausea/Vomiting Sodium Chloride (Saline Flush) 10 ml FLUSH ASDIRECTED PRN PRN Reason: Keep Vein Open Discontinued Medications Citric Acid/Sodium Citrate (Bicitra Solution) 30 ml PO ONETIME ONE Stop: 09/18/18 06:31 Last Admin: 09/18/18 14:54 Dose: Not Given Cefazolin Sodium/Dextrose 2 gm (/ Premix) 50 mls @ 100 mls/hr IV ONETIME ONE Stop: 09/18/18 07:59 Metoclopramide HCl (Reglan) 10 mg IVPUSH ONETIME ONE Stop: 09/18/18 06:31 Last Admin: 09/18/18 14:54 Dose: Not Given - My Orders Last 24 Hours: My Active Orders 09/18/18 00:03 Communication Order [RC] ROUTINE Urinary Catheter Assessment [RC] ASDIRECTED Vital Signs [RC] PFP Sodium Chloride 0.9% [Saline Flush] 10 ml FLUSH ASDIRECTED PRN DVT/VTE Prophylaxis Reflex [OM.PC] Routine Peripheral IV Insertion Adult [OM.PC] Routine Schedule Procedure [COMM] Per Unit Routine Resuscitation Status Routine 09/18/18 00:04 Peripheral IV Care [RC] . DIRECTED 09/18/18 00:17 Antiembolic Devices [RC] .Routine VTE/DVT Education [RC] PER UNIT ROUTINE 09/18/18 05:30 Lactated Ringers [Ringers, Lactated] 1,000 ml IV ASDIRECTED 09/18/18 06:25 RAPID PLASMA REAGIN,RPR [CHEM] Routine 09/18/18 07:00 Patient Status [ADT] Routine Communication Order [RC] ASDIRECTED Communication Order [RC] ASDIRECTED Notify Provider [RC] ASDIRECTED Vital Signs [RC] ASDIRECTED Nalbuphine [Nubain] 10 mg IVPUSH Q2H PRN Ondansetron [Zofran] 4 mg IVPUSH Q4H PRN Oxytocin/Lactated Ringers [Pitocin in LR 10 Units/1,000 ML] 10 unit in 1,000 ml IV TITRATE 09/18/18 07:01 Communication Order [RC] ASDIRECTED Notify Provider [RC] PRN Electronic Heart Tones Ext w TOCO [WOMSER] Routine Electronic Heart Tones Internal [WOMSER] Per Unit Routine 09/18/18 07:30 Oxytocin/Lactated Ringers [Pitocin in LR 10 Units/1,000 ML] 10 unit in 1,000 ml IV ASDIRECTED 09/18/18 Breakfast Regular Diet [DIET]
--- NOTE | 2018-09-18 15:54 | PCM.PNLD ---
Labor Progress Note - VS & Meds Vital Signs: Last Vital Signs Temp 36.6 C 09/18/18 05:45 Pulse 84 09/18/18 05:45 Resp 16 09/18/18 12:22 BP 121/86 09/18/18 05:45 Pulse Ox 98 09/18/18 12:22 Active Medications: Current Medications Bupropion HCl (Wellbutrin Xl) 300 mg PO DAILY [facility] Citalopram Hydrobromide (Celexa) 20 mg PO DAILY [facility] Diphenhydramine HCl (Benadryl) 25 mg IVPUSH Q6H PRN PRN Reason: Pruritis Ephedrine Sulfate (Ephedrine Sulfate) 5 mg IVPUSH ASDIRECTED PRN PRN Reason: Hypotension Fentanyl (Sublimaze) 100 mcg EPIDUR ONETIME PRN PRN Reason: Pain Last Admin: 09/18/18 13:40 Dose: 100 mcg Fentanyl/Bupivacaine HCl (Fentanyl/Bupivacaine/Ns 2 Mcg-0.125% 100 Ml) 100 ml EPIDUR ASDIRECTED NASEEM Last Admin: 09/18/18 13:39 Dose: 100 ml Lactated Ringer's (Ringers, Lactated) 1,000 mls @ 125 mls/hr IV ASDIRECTED NASEEM Last Admin: 09/18/18 14:59 Dose: 999 mls/hr Oxytocin/Lactated Ringer's (Pitocin In Lr 10 Units/1,000 Ml) 10 unit in 1,000 mls @ 100 mls/hr IV ASDIRECTED [facility] Oxytocin/Lactated Ringer's (Pitocin In Lr 10 Units/1,000 Ml) 10 unit in 1,000 mls @ 12 mls/hr IV TITRATE NASEEM; Protocol Last Titration: 09/18/18 15:00 Dose: 16 munits/min, 96 mls/hr Nalbuphine HCl (Nubain) 10 mg IVPUSH Q2H PRN PRN Reason: Pain Ondansetron HCl (Zofran) 4 mg IVPUSH Q4H PRN PRN Reason: Nausea/Vomiting Ondansetron HCl (Zofran) 4 mg IVPUSH ONETIME PRN PRN Reason: Nausea/Vomiting Sodium Chloride (Saline Flush) 10 ml FLUSH ASDIRECTED PRN PRN Reason: Keep Vein Open Discontinued Medications Citric Acid/Sodium Citrate (Bicitra Solution) 30 ml PO ONETIME ONE Stop: 09/18/18 06:31 Last Admin: 09/18/18 14:54 Dose: Not Given Cefazolin Sodium/Dextrose 2 gm (/ Premix) 50 mls @ 100 mls/hr IV ONETIME ONE Stop: 09/18/18 07:59 Metoclopramide HCl (Reglan) 10 mg IVPUSH ONETIME ONE Stop: 09/18/18 06:31 Last Admin: 09/18/18 14:54 Dose: Not Given - Uterine Contractions Uterine Monitoring Mode: IUPC Contraction Intensity: Moderate to Strong Uterine Resting Tone: Soft - Monitoring Monitor Mode: External Ultrasound Heart Rate (FHR) Baseline: 135 Heart Rate (FHR) Variability: Moderate (6-25 bmp) Accelerations: Present, 15x15 Decelerations: Early, Variable Strip Review: Category II - Vaginal Exam Dilation (cm): 5-6 Effacement (Percent): 60 Station: -2 Cervical Position: Midposition - Labor Progress (Free Text) Labor Progress: Doing well. Comfortable with epidural. Continue pitocin per protocol. Reassess again in few hours
[2018-09-18] MEDS ORDERED: Misoprostol 200 MCG Tab ONE (18:35)
[2018-09-18] MEDS ORDERED: Lactated Ringers 1,000 ML ONE (18:50)
[2018-09-18] MEDS ORDERED: ceFAZolin/Dextrose,Iso-Osmotic 2 GM/50 ML Duplex Bag IV ONE (18:51)
[2018-09-18] MEDS ORDERED: Carboprost Tromethamine 250 MCG/1 ML Amp IM ONE (19:11)
[2018-09-18] MEDS ORDERED: Methylergonovine 0.2 MG/1 ML Amp IM STA (19:11)
[2018-09-18] MEDS ORDERED: Misoprostol 200 MCG Tab PO STA (19:11)
--- NOTE | 2018-09-18 19:20 | PCM.DEL ---
L & D Note - General Info Date of Service: 09/18/18 - Delivery Note Labor: Induced by ARM, Induced by Oxytocin Delivery Outcome: Livebirth Infant Delivery Method: Spontaneous Vaginal Delivery-Single Delivery Mode: Spontaneous Presentation: Right Occiput Anterior (BEA) Nuchal Cord: Present, Reduced Anesthesia Type: Epidural Amniotic Fluid Description: Clear Episiotomy Type: None Laceration: 1st Degree, Vaginal Suture type: Vicryl Suture size: 2-0 Placenta: Intact, Spontaneous Cord: 3 Vessels Estimated Blood Loss: 800 Resuscitation Needed: Yes : Bulb Syringe, Stimulated, Warmed, [place] Used, Warmer Used Post Delivery Events: Hemorrhage Delivery Comments (Free Text/Narrative):: Patient found to be complete and began pushing. With maternal pushing effort head delivered from an BEA presentation. Nuchal cord present and reduced. With gentle downward traction the shoulders did not immediately deliver. Attempt to put patient in deeper McRobert's did not relieve this dystocia. Hand placed into the posterior vaginal and posterior shoulder felt. Pressure applied and with this motion the anterior shoulder did delivery. Remainder of infant quickly followed.Poor tone of noted along with terminal meconium. Cord clamped and cut and baby taken to warmer. Cord gas obtained. Cord blood then obtained. Placenta allowed time to separate and expelled intact. Immediately after this there was atony noted of the uterus and significant bleeding. Patient was first given Cytotec, then methergine, then hemabate, and then tranexamic acid to control this bleeding. This was in addition to vigorous fundal massage and several explorations of the uterine cavity. Total EBL at the end of delivery was 800 cc. Small 1st degree noted. This was reapproximated with a 2-0 vicryl in a single suture placed in figure of eight fashion. Cord gas: Venous 7.43, CO2 27.2, O2 40 Arterial 7.23, CO2 58, O2 19 - General Info Date of Service: 09/18/18 - Patient Data Vitals - Most Recent: Last Vital Signs Temp 36.6 C 09/18/18 05:45 Pulse 84 09/18/18 05:45 Resp 16 09/18/18 12:22 BP 121/86 09/18/18 05:45 Pulse Ox 98 09/18/18 12:22 Weight - Most Recent: 92.986 kg I&O - Last 24 Hours: Intake & Output 09/18/18 09/18/18 09/18/18 06:59 14:59 22:59 Intake Total 0 120 Balance 0 120 Lab Results Last 24 Hours: Laboratory Results - last 24 hr 09/18/18 09/18/18 Range/Units 06:25 06:25 WBC 9.03 (3.98-10.04) K/mm3 RBC 3.79 L (3.98-5.22) M/mm3 Hgb 11.1 L D (11.2-15.7) gm/L Hct 35.3 (34.1-44.9) % MCV 93.1 (79.4-94.8) fl MCH 29.3 (25.6-32.2) pg MCHC 31.4 L (32.2-35.5) g/dl RDW Std Deviation 45.0 (36.4-46.3) fL Plt Count 223 (182-369) K/mm3 MPV 11.3 (9.4-12.3) fl Neut % (Auto) 60.9 (34.0-71.1) % Lymph % (Auto) 27.6 (19.3-51.7) % [place] % (Auto) 9.9 (4.7-12.5) % Eos % (Auto) 0.6 L (0.7-5.8) Baso % (Auto) 0.6 (0.1-1.2) % Neut # (Auto) 5.51 (1.56-6.13) K/mm3 Lymph # (Auto) 2.49 (1.18-3.74) K/mm3 [place] # (Auto) 0.89 H (0.24-0.36) K/mm3 Eos # (Auto) 0.05 (0.04-0.36) K/mm3 Baso # (Auto) 0.05 (0.01-0.08) K/mm3 Blood Type A POSITIVE Gel Antibody Screen Negative Med Orders - Current: Current Medications Bupropion HCl (Wellbutrin Xl) 300 mg PO DAILY NASEEM Citalopram Hydrobromide (Celexa) 20 mg PO DAILY NASEEM Diphenhydramine HCl (Benadryl) 25 mg IVPUSH Q6H PRN PRN Reason: Pruritis Ephedrine Sulfate (Ephedrine Sulfate) 5 mg IVPUSH ASDIRECTED PRN PRN Reason: Hypotension Fentanyl (Sublimaze) 100 mcg EPIDUR ONETIME PRN PRN Reason: Pain Last Admin: 09/18/18 13:40 Dose: 100 mcg Fentanyl/Bupivacaine HCl (Fentanyl/Bupivacaine/Ns 2 Mcg-0.125% 100 Ml) 100 ml EPIDUR ASDIRECTED NASEEM Last Admin: 09/18/18 13:39 Dose: 100 ml Lactated Ringer's (Ringers, Lactated) 1,000 mls @ 125 mls/hr IV ASDIRECTED NASEEM Last Admin: 09/18/18 17:16 Dose: 999 mls/hr Oxytocin/Lactated Ringer's (Pitocin In Lr 10 Units/1,000 Ml) 10 unit in 1,000 mls @ 100 mls/hr IV ASDIRECTED NASEEM Oxytocin/Lactated Ringer's (Pitocin In Lr 10 Units/1,000 Ml) 10 unit in 1,000 mls @ 12 mls/hr IV TITRATE NASEEM; Protocol Last Titration: 09/18/18 17:17 Dose: 20 munits/min, 120 mls/hr Cefazolin Sodium/Dextrose 2 gm (/ Premix) 50 mls @ 100 mls/hr IV ONETIME ONE Stop: 09/18/18 19:40 Nalbuphine HCl (Nubain) 10 mg IVPUSH Q2H PRN PRN Reason: Pain Ondansetron HCl (Zofran) 4 mg IVPUSH Q4H PRN PRN Reason: Nausea/Vomiting Ondansetron HCl (Zofran) 4 mg IVPUSH ONETIME PRN PRN Reason: Nausea/Vomiting Sodium Chloride (Saline Flush) 10 ml FLUSH ASDIRECTED PRN PRN Reason: Keep Vein Open Discontinued Medications Carboprost Tromethamine (Hemabate Ds) 250 mcg IM ONETIME ONE Stop: 09/18/18 19:12 Cefazolin Sodium/Dextrose (Ancef) Confirm Administered Dose 2 gm IV .STK-MED ONE Stop: 09/18/18 18:52 Citric Acid/Sodium Citrate (Bicitra Solution) 30 ml PO ONETIME ONE Stop: 09/18/18 06:31 Last Admin: 09/18/18 14:54 Dose: Not Given Cefazolin Sodium/Dextrose 2 gm (/ Premix) 50 mls @ 100 mls/hr IV ONETIME ONE Stop: 09/18/18 07:59 Lactated Ringer's (Ringers, Lactated) Confirm Administered Dose 1,000 mls @ as directed .ROUTE .STK-MED ONE Stop: 09/18/18 18:51 Methylergonovine Maleate (Methergine) 0.2 mg IM Q4H STA Stop: 09/18/18 19:12 Metoclopramide HCl (Reglan) 10 mg IVPUSH ONETIME ONE Stop: 09/18/18 06:31 Last Admin: 09/18/18 14:54 Dose: Not Given Misoprostol (Cytotec) Confirm Administered Dose 600 mcg .ROUTE .STK-MED ONE Stop: 09/18/18 18:36 Misoprostol (Cytotec) 600 mcg PO BID STA Stop: 09/18/18 19:12 Tranexamic Acid (Cyklokapron) 1,000 mg IVPUSH ONETIME ONE Stop: 09/18/18 19:12 - Problem List & Annotations (1) 39 weeks gestation of SNOMED Code(s): 24902572 Code(s): Z3A.39 - 39 WEEKS GESTATION OF Status: Acute Current Visit: Yes (2) History of SNOMED Code(s): 038471935 Code(s): Z98.891 - HISTORY OF UTERINE SCAR FROM PREVIOUS SURGERY Status: Acute Current Visit: Yes (3) , delivered, current hospitalization SNOMED Code(s): 387750740 Code(s): O34.219 - MATERNAL CARE FOR UNSP TYPE SCAR FROM PREVIOUS DEL Status: Acute Current Visit: Yes (4) hemorrhage SNOMED Code(s): 73857429 Code(s): O72.1 - OTHER IMMEDIATE HEMORRHAGE Status: Acute Current Visit: Yes Qualifiers: hemorrhage type: other immediate Qualified Code(s): O72.1 - Other immediate hemorrhage - Problem List Review Problem List Initiated/Reviewed/Updated: Yes - My Orders Last 24 Hours: My Active Orders 09/18/18 00:03 Communication Order [RC] ROUTINE Urinary Catheter Assessment [RC] ASDIRECTED Vital Signs [RC] PFP Sodium Chloride 0.9% [Saline Flush] 10 ml FLUSH ASDIRECTED PRN DVT/VTE Prophylaxis Reflex [OM.PC] Routine Peripheral IV Insertion Adult [OM.PC] Routine Schedule Procedure [COMM] Per Unit Routine Resuscitation Status Routine 09/18/18 00:04 Peripheral IV Care [RC] . DIRECTED 09/18/18 00:17 Antiembolic Devices [RC] .Routine VTE/DVT Education [RC] PER UNIT ROUTINE 09/18/18 05:30 Lactated Ringers [Ringers, Lactated] 1,000 ml IV ASDIRECTED 09/18/18 06:25 RAPID PLASMA REAGIN,RPR [CHEM] Routine 09/18/18 07:00 Patient Status [ADT] Routine Communication Order [RC] ASDIRECTED Communication Order [RC] ASDIRECTED Notify Provider [RC] ASDIRECTED Vital Signs [RC] ASDIRECTED Nalbuphine [Nubain] 10 mg IVPUSH Q2H PRN Ondansetron [Zofran] 4 mg IVPUSH Q4H PRN Oxytocin/Lactated Ringers [Pitocin in LR 10 Units/1,000 ML] 10 unit in 1,000 ml IV TITRATE 09/18/18 07:01 Communication Order [RC] ASDIRECTED Notify Provider [RC] PRN Electronic Heart Tones Ext w TOCO [WOMSER] Routine Electronic Heart Tones Internal [WOMSER] Per Unit Routine 09/18/18 07:30 Oxytocin/Lactated Ringers [Pitocin in LR 10 Units/1,000 ML] 10 unit in 1,000 ml IV ASDIRECTED 09/18/18 19:11 ceFAZolin [Ancef] 2 gm Premix Bag 1 bag IV ONETIME 09/18/18 Breakfast Regular Diet [DIET] 09/19/18 09:00 Citalopram [Celexa] 20 mg PO DAILY buPROPion [Wellbutrin XL] 300 mg PO DAILY - Assessment Assessment:: 33 y/o PPD#0 from at 39 3/7 wks - Plan Plan:: with PPH * One additional dose of methergine to be given in 4 hours * CBC in AM * Close monitoring of bleeding * Routine cares * Bottle feeding * Continue Wellbutrin and Lexapro
[2018-09-18] MEDS ORDERED: HYDROmorphone 0.5 MG/0.5 ML Syringe IVPUSH ONE (20:35)
[2018-09-18] MEDS ORDERED: Promethazine 12.5 MG in Sodium Chloride 0.9% 50 ML IV ONE (20:35)
[2018-09-18] MEDS ORDERED: Benzocaine/Menthol 20%-0.5% Spray 56 GM Canister TOP PRN (20:37)
[2018-09-18] MEDS ORDERED: Lanolin 100% Cream 7 GM Tube TOP PRN (20:37)
[2018-09-18] MEDS ORDERED: Docusate Sodium 100 MG Cap PO PRN (20:37)
[2018-09-18] MEDS ORDERED: Witch Hazel Medicated Pads 40/Jar TOP PRN (20:37)
[2018-09-18] MEDS ORDERED: Ondansetron 4 MG/2 ML SDV ONE (22:57)
[2018-09-18] MEDS ORDERED: Methylergonovine 0.2 MG/1 ML Amp IM PRN (23:00)
[2018-09-18] MEDS: Ibuprofen 600 MG Tab PO PRN (23:17)
[2018-09-19] MEDS: Acetaminophen 325 MG Tab PO PRN ×2 (03:26→10:39)
[2018-09-19] MEDS: Ibuprofen 600 MG Tab PO PRN ×3 (05:13→19:40)
[2018-09-19] MEDS: buPROPion 150 MG Tab.ER PO SCH (11:20)
[2018-09-19] MEDS: Citalopram 20 MG Tab PO SCH (11:20)
--- NOTE | 2018-09-19 12:27 | PCM.SN ---
- Free Text/Narrative Note: Post Progress Note PPD # 1 Subjective: Doing well overall this morning. Patient had moderate amount of difficulty with nausea and vomiting as well as pain overnight. She was given IV antiemetics as well as IV pain medications that helped with her pain and nausea overnight. This morning she reports that she is doing well. Ambulating without difficulty. Lochia decreasing and feels like it is minimal at this point. Voiding without difficulty. Tolerating regular diet without nausea or vomiting. Pain controlled with oral medications. Bottlefeeding with minimal difficulty. Objective: Vitals: Vital Signs - 24 hr 09/19/18 09/19/18 03:29 08:39 Temperature 36.8 C 36.8 C Pulse, 89 80 Peripheral Respiratory 14 16 Rate Blood Pressure 115/88 112/93 H O2 Sat by Pulse 100 100 Oximetry Physical Exam General: Alert and oriented, no acute distress Lungs: Clear to auscultation bilaterally Heart: Regular rate and rhythm Abdomen: Soft, minimal appropriate tenderness, non-distended, fundus midline, nontender, and at the umbilicus Extremities: Trace edema in bilateral lower extremities to knees and in hands and wrists ASSESSMENT: 33-year-old female 023 s/p vaginal delivery after section complicated by shoulder dystocia and hemorrhage of 800 mL of blood. She was given Pitocin, Methergine, Hemabate and tranexamic acid for control of her bleeding, PPD #1, complicated by history of depression and anxiety, history of section and carpal tunnel syndrome in PLAN: Doing well this morning Her hematocrit had dropped from 35.3 on admission down to 29.7 today. Patient does not need blood transfusion at this time. We will monitor closely for her vital signs. Bottlefeeding with minimal difficulty. Assist as needed Lochia minimal at this time and has decreased overnight. Continue to monitor for appropriate lochia. Continue routine care Patient may continue to use heat and cold packs for her right hand with carpal tunnel syndrome. She may also use an Jb bandage wrapped to see if this helps with some of her symptoms. Discussed with patient that this will likely resolve spontaneously over the next several days. Anticipate discharge home tomorrow Ozzy Beverly MD 12:26 PM 09/19/2018
[2018-09-20] MEDS: Ibuprofen 600 MG Tab PO PRN ×2 (02:59→10:49)
--- NOTE | 2018-09-20 08:02 | PCM.SN ---
- Free Text/Narrative Note: Post Progress Note PPD # 2 Subjective: Doing well overall this morning. Ambulating without difficulty. Lochia stable from yesterday and continues to be minimal in amount. Voiding without difficulty. Tolerating regular diet without nausea or vomiting. Pain controlled with oral medications. Bottlefeeding with minimal difficulty. Objective: Vitals: Vital Signs - 24 hr 09/19/18 09/19/18 09/19/18 08:39 16:38 16:56 Temperature 36.8 C 36.6 C Temperature [ Axillary] Temperature [ Temporal] Pulse, 80 82 Peripheral Pulse, 84 Peripheral [ Pulse Oximetry] Respiratory 16 16 Rate Blood Pressure 112/93 H 88/65 L Blood Pressure 110/78 [Left Arm] O2 Sat by Pulse 100 99 100 Oximetry 09/19/18 09/20/18 20:23 03:00 Temperature Temperature [ 36.7 C Axillary] Temperature [ 36.7 C Temporal] Pulse, Peripheral Pulse, 89 88 Peripheral [ Pulse Oximetry] Respiratory 14 14 Rate Blood Pressure Blood Pressure 110/66 111/75 [Left Arm] O2 Sat by Pulse 100 99 Oximetry Physical Exam General: Alert and oriented, no acute distress Lungs: Clear to auscultation bilaterally Heart: Regular rate and rhythm Abdomen: Soft, minimal appropriate tenderness, non-distended, fundus midline, nontender, and 1 fingerbreadth below the umbilicus Extremities: Trace edema in bilateral lower extremities to knees ASSESSMENT: 33-year-old female 023 s/p vaginal delivery after section complicated by shoulder dystocia and hemorrhage of 800 mL of blood. She was given Pitocin, Methergine, Hemabate and tranexamic acid for control of her bleeding, PPD #2, complicated by history of depression and anxiety, history of section and carpal tunnel syndrome in PLAN: Doing well this morning Patient with with history of hemorrhage during delivery and had anticipated drop in her blood count on day #1. Vital signs stable throughout day #1 into day #2 Bottlefeeding with minimal difficulty. Assist as needed Lochia continues to be minimal this morning and has been stable since yesterday. Continue to monitor for appropriate lochia. Continue routine care Patient may continue to use heat and cold packs for her right hand with carpal tunnel syndrome. She she has been using an Jb bandage wrapped to help with some of her symptoms. Discussed with patient that this will likely resolve spontaneously over the next several days. Pain improved throughout the night and is only present when resting at this time. Discharge home today Ozzy Beverly MD 7:57 AM 09/20/2018
[2018-09-20] MEDS: Acetaminophen 325 MG Tab PO PRN (08:05)
--- NOTE | 2018-09-20 08:16 | PCM.DCSUM1 ---
Discharge Summary - Hospital Course Free Text/Narrative:: Labor: Induced by ARM, Induced by Oxytocin Delivery Outcome: Livebirth Delivery Method: Spontaneous Vaginal Delivery-Single Infant Delivery Mode: Spontaneous Presentation: Right Occiput Anterior (BEA) Nuchal Cord: Present, Reduced Anesthesia Type: Epidural Amniotic Fluid Description: Clear Episiotomy Type: None Laceration: 1st Degree, Vaginal Suture type: Vicryl Suture size: 2-0 Placenta: Intact, Spontaneous Cord: 3 Vessels Estimated Blood Loss: 800 Resuscitation Needed: Yes : Bulb Syringe, Stimulated, Warmed, Hadley Used, Warmer Used Post Delivery Events: Hemorrhage Delivery Comments (Free Text/Narrative):: Patient found to be complete and began pushing. With maternal pushing effort head delivered from an BEA presentation. Nuchal cord present and reduced. With gentle downward traction the shoulders did not immediately deliver. Attempt to put patient in deeper McRobert's did not relieve this dystocia. Hand placed into the posterior vaginal and posterior shoulder felt. Pressure applied and with this motion the anterior shoulder did delivery. Remainder of quickly followed.Poor tone of infant noted along with terminal meconium. Cord clamped and cut and baby taken to warmer. Cord gas obtained. Cord blood then obtained. Placenta allowed time to separate and expelled intact. Immediately after this there was atony noted of the uterus and significant bleeding. Patient was first given Cytotec, then methergine, then hemabate, and then tranexamic acid to control this bleeding. This was in addition to vigorous fundal massage and several explorations of the uterine cavity. Total EBL at the end of delivery was 800 cc. Small 1st degree noted. This was reapproximated with a 2-0 vicryl in a single suture placed in figure of eight fashion. Cord gas: Venous 7.43, CO2 27.2, O2 40 Arterial 7.23, CO2 58, O2 19 HPI Initial Comments: Labor: Induced by ARM, Induced by Oxytocin Delivery Outcome: Livebirth Infant Delivery Method: Spontaneous Vaginal Delivery-Single Delivery Mode: Spontaneous Presentation: Right Occiput Anterior (BEA) Nuchal Cord: Present, Reduced Anesthesia Type: Epidural Amniotic Fluid Description: Clear Episiotomy Type: None Laceration: 1st Degree, Vaginal Suture type: Vicryl Suture size: 2-0 Placenta: Intact, Spontaneous Cord: 3 Vessels Estimated Blood Loss: 800 Resuscitation Needed: Yes [place]: Bulb Syringe, Stimulated, Warmed, Hadley Used, Warmer Used Post Delivery Events: Hemorrhage Delivery Comments (Free Text/Narrative):: Patient found to be complete and began pushing. With maternal pushing effort head delivered from an BEA presentation. Nuchal cord present and reduced. With gentle downward traction the shoulders did not immediately deliver. Attempt to put patient in deeper McRobert's did not relieve this dystocia. Hand placed into the posterior vaginal and posterior shoulder felt. Pressure applied and with this motion the anterior shoulder did delivery. Remainder of quickly followed.Poor tone of infant noted along with terminal meconium. Cord clamped and cut and baby taken to warmer. Cord gas obtained. Cord blood then obtained. Placenta allowed time to separate and expelled intact. Immediately after this there was atony noted of the uterus and significant bleeding. Patient was first given Cytotec, then methergine, then hemabate, and then tranexamic acid to control this bleeding. This was in addition to vigorous fundal massage and several explorations of the uterine cavity. Total EBL at the end of delivery was 800 cc. Small 1st degree noted. This was reapproximated with a 2-0 vicryl in a single suture placed in figure of eight fashion. Cord gas: Venous 7.43, CO2 27.2, O2 40 Arterial 7.23, CO2 58, O2 19 Brief History: Labor: Induced by ARM, Induced by Oxytocin. Delivery Outcome: Livebirth. Delivery Method: Spontaneous Vaginal Delivery-Single. Infant Delivery Mode: Spontaneous. Presentation: Right Occiput Anterior ( BEA). Nuchal Cord: Present, Reduced. Anesthesia Type: Epidural. Amniotic Fluid Description: Clear. Episiotomy Type: None. Laceration: 1st Degree, Vaginal. Suture type: Vicryl. Suture size: 2-0. Placenta: Intact, Spontaneous. Cord: 3 Vessels. Estimated Blood Loss: 800. Resuscitation Needed : Yes. : Bulb Syringe, Stimulated, Warmed, Hadley Used, Warmer Used. Post Delivery Events: Hemorrhage. Delivery Comments (Free Text/Narrative):: Patient found to be complete and began pushing. With maternal pushing effort head delivered from an BEA presentation. Nuchal cord present and reduced. With gentle downward traction the shoulders did not immediately deliver. Attempt to put patient in deeper McRobert's did not relieve this dystocia. Hand placed into the posterior vaginal and posterior shoulder felt. Pressure applied and with this motion the anterior shoulder did delivery. Remainder of infant quickly followed.Poor tone of noted along with terminal meconium. Cord clamped and cut and baby taken to warmer. Cord gas obtained. Cord blood then obtained. Placenta allowed time to separate and expelled intact. Immediately after this there was atony noted of the uterus and significant bleeding. Patient was first given Cytotec, then methergine, then hemabate, and then tranexamic acid to control this bleeding. This was in addition to vigorous fundal massage and several explorations of the uterine cavity. Total EBL at the end of delivery was 800 cc. Small 1st degree noted. This was reapproximated with a 2-0 vicryl in a single suture placed in figure of eight fashion. Cord gas: Venous 7.43, CO2 27.2, O2 40. Arterial 7.23, CO2 58, O2 19 Diagnosis: Stroke: No - Discharge Data Discharge Date: 09/20/18 Discharge Disposition: Home, Self-Care 01 Condition: Good - Discharge Diagnosis/Problem(s) (1) 39 weeks gestation of SNOMED Code(s): 76933628 ICD Code: Z3A.39 - 39 WEEKS GESTATION OF Status: Acute Current Visit: Yes (2) History of SNOMED Code(s): 252080517 ICD Code: Z98.891 - HISTORY OF UTERINE SCAR FROM PREVIOUS SURGERY Status: Acute Current Visit: Yes (3) hemorrhage SNOMED Code(s): 78284303 ICD Code: O72.1 - OTHER IMMEDIATE HEMORRHAGE Status: Acute Current Visit: Yes Qualifiers: hemorrhage type: other immediate Qualified Code(s): O72.1 - Other immediate hemorrhage (4) , delivered, current hospitalization SNOMED Code(s): 902232526 ICD Code: O34.219 - MATERNAL CARE FOR UNSP TYPE SCAR FROM PREVIOUS DEL Status: Acute Current Visit: Yes (5) Acute blood loss anemia SNOMED Code(s): 933149649 ICD Code: D62 - ACUTE POSTHEMORRHAGIC ANEMIA Status: Acute Current Visit : No - Patient Summary/Data Complications: hemorrhage of 800 mL Consults: None Hospital Course: Melvi Iniguez was admitted for planned external cephalic version with possible section but was found to be in vertex presentation. Decision was made to proceed with induction of labor. On admission her cervix was dilated to 3 cm. She was GBS negative. She was given pitocin for augmentation. She had artificial rupture of membranes with small amount of clear fluid. She was given an epidural for anesthesia. She had an IUPC placed for monitoring of contractions. She progressed to complete and began pushing. On 1419 she had a vaginal delivery after section of a live male at 1826. Apgars of 2, 3 and 6. Weight of 4260 g (9 pounds 6.3 ounces). The delivery was complicated by a shoulder dystocia that was relieved with use of application of pressure to the posterior shoulder and Ld maneuver. She had a hemorrhage of 800 mL and was given Cytotec, Methergine, Hemabate and tranexamic acid to control her bleeding. She was given an additional dose of Methergine 4 hours after delivery. Her course was complicated by severe nausea and vomiting as well as pain after the delivery. She was given IV anti-emetics and pain medications and her pain and nausea was able to be controlled. Her pain was well controlled after initial difficulty with control using oral medications and she had minimal lochia. She was ambulating, tolerating a regular diet and voiding normally. She was bottlefeeding with minimal difficulty. She was afebrile and her hematocrit was 29.7 on day #1. She desired to be discharged home on the morning of PPD #2. Her blood type is A+. - Patient Instructions Diet: Regular Diet as Tolerated Activity: Apply Ice, As Tolerated Activity, Other: Nothing in the vagina for 6 weeks Driving: May Drive Today Showering/Bathing: May Shower Notify Provider of: Fever, Increased Pain, Swelling and Redness, Drainage, Nausea and/or Vomiting Other/Special Instructions: Please contact your physician's office if you have heavy vaginal bleeding enough to soak a pad in less than an hour for several hours. Monitor for any signs of an infection in the breasts with severe pain or redness of the breast. - Discharge Plan *PRESCRIPTION DRUG MONITORING PROGRAM REVIEWED*: Not Applicable *COPY OF PRESCRIPTION DRUG MONITORING REPORT IN PATIENT DOROTEO: Not Applicable Home Medications: Home Meds Doxylamine Succinate [Unisom] 25 mg PO 09/18/18 [History] Escitalopram [Lexapro] 10 mg PO DAILY 09/18/18 [History] Pnv No.95/Ferrous Fum/Folic AC [ Caplet] 1 tab PO DAILY 09/18/18 [ History] Ranitidine HCl [Zantac 75] 75 mg PO DAILY PRN 09/18/18 [History] buPROPion HCl [Wellbutrin Xl] 300 mg PO DAILY 09/18/18 [History] Acetaminophen [Tylenol] 650 mg PO Q4H PRN tablet 09/20/18 [Rx] Benzocaine/Menthol [Dermoplast Pain Relief [place]] 1 spray TOP ASDIRECTED PRN canister 09/20/18 [Rx] Docusate Sodium [Colace] 100 mg PO BID PRN cap 09/20/18 [Rx] Ibuprofen [Motrin] 600 mg PO Q6H PRN tablet 09/20/18 [Rx] Lanolin [Lansinoh HPA] 1 applic TOP ASDIRECTED PRN tube 09/20/18 [Rx] Witch Sarah [Tucks] 1 pad TOP ASDIRECTED PRN pad 09/20/18 [Rx] Patient Handouts: Home Care Instructions for Mom, Vaginal Delivery, Care After , Care of a Perineal Tear Referrals: Vijaya Myers MD [Physician] - (Follow-up in 3-6 weeks for routine visit or earlier as needed.) - Discharge Summary/Plan Comment DC Time >30 min.: No - Patient Data Vitals - Most Recent: Last Vital Signs Temp 36.7 C 09/20/18 03:00 Pulse 88 09/20/18 03:00 Resp 14 09/20/18 03:00 BP 111/75 09/20/18 03:00 Pulse Ox 99 09/20/18 03:00 Weight - Most Recent: 92.986 kg I&O - Last 24 hours: Intake & Output 09/19/18 09/20/18 09/20/18 22:59 06:59 14:59 Intake Total 240 Balance 240 Lab Results - Last 24 hrs: Laboratory Results - last 24 hr 09/18/18 Range/Units 18:57 Cord VBG pO2 40.0 H (28-32) Med Orders - Current: Current Medications Acetaminophen (Tylenol) 650 mg PO Q4H PRN PRN Reason: mild pain or fever Last Admin: 09/20/18 08:05 Dose: 650 mg Benzocaine/Menthol (Dermoplast Pain Relief [place]) 0 gm TOP ASDIRECTED PRN PRN Reason: Perineal Comfort Measure Bupropion HCl (Wellbutrin Xl) 300 mg PO DAILY [facility] Last Admin: 09/19/18 11:20 Dose: Not Given Citalopram Hydrobromide (Celexa) 20 mg PO DAILY [facility] Last Admin: 09/19/18 11:20 Dose: Not Given Docusate Sodium (Colace) 100 mg PO BID PRN PRN Reason: Constipation Emollient Ointment (Lansinoh Hpa) 0 gm TOP ASDIRECTED PRN PRN Reason: Sore Nipples Ibuprofen (Motrin) 600 mg PO Q6H PRN PRN Reason: Mild pain or fever Last Admin: 09/20/18 02:59 Dose: 600 mg Methylergonovine Maleate (Methergine) 0.2 mg IM ONETIME PRN PRN Reason: Excessive Vaginal Bleeding Last Admin: 09/18/18 23:18 Dose: 0.2 mg Witch Sarah (Tucks) 1 pad TOP ASDIRECTED PRN PRN Reason: Perineal Comfort Measure Discontinued Medications Carboprost Tromethamine (Hemabate Ds) 250 mcg IM ONETIME ONE Stop: 09/18/18 19:12 Last Admin: 09/18/18 19:43 Dose: 250 mcg Cefazolin Sodium/Dextrose (Ancef) Confirm Administered Dose 2 gm IV .STK-MED ONE Stop: 09/18/18 18:52 Last Admin: 09/18/18 19:46 Dose: Not Given Citric Acid/Sodium Citrate (Bicitra Solution) 30 ml PO ONETIME ONE Stop: 09/18/18 06:31 Last Admin: 09/18/18 14:54 Dose: Not Given Diphenhydramine HCl (Benadryl) 25 mg IVPUSH Q6H PRN PRN Reason: Pruritis Ephedrine Sulfate (Ephedrine Sulfate) 5 mg IVPUSH ASDIRECTED PRN PRN Reason: Hypotension Fentanyl (Sublimaze) 100 mcg EPIDUR ONETIME PRN PRN Reason: Pain Last Admin: 09/18/18 13:40 Dose: 100 mcg Fentanyl/Bupivacaine HCl (Fentanyl/Bupivacaine/Ns 2 Mcg-0.125% 100 Ml) 100 ml EPIDUR ASDIRECTED NASEEM Last Admin: 09/18/18 13:39 Dose: 100 ml Hydromorphone HCl (Dilaudid) 0.5 mg IVPUSH ONETIME ONE Stop: 09/18/18 20:36 Last Admin: 09/18/18 21:06 Dose: 0.5 mg Cefazolin Sodium/Dextrose 2 gm (/ Premix) 50 mls @ 100 mls/hr IV ONETIME ONE Stop: 09/18/18 07:59 Lactated Ringer's (Ringers, Lactated) 1,000 mls @ 125 mls/hr IV ASDIRECTED NASEEM Last Admin: 09/18/18 17:16 Dose: 999 mls/hr Oxytocin/Lactated Ringer's (Pitocin In Lr 10 Units/1,000 Ml) 10 unit in 1,000 mls @ 100 mls/hr IV ASDIRECTED NASEEM Oxytocin/Lactated Ringer's (Pitocin In Lr 10 Units/1,000 Ml) 10 unit in 1,000 mls @ 12 mls/hr IV TITRATE NASEEM; Protocol Last Admin: 09/18/18 20:09 Dose: 20 munits/min, 120 mls/hr Lactated Ringer's (Ringers, Lactated) Confirm Administered Dose 1,000 mls @ as directed .ROUTE .STK-MED ONE Stop: 09/18/18 18:51 Last Admin: 09/18/18 19:46 Dose: Not Given Cefazolin Sodium/Dextrose 2 gm (/ Premix) 50 mls @ 100 mls/hr IV ONETIME ONE Stop: 09/18/18 19:40 Last Admin: 09/18/18 19:02 Dose: 100 mls/hr Promethazine HCl 12.5 mg/ (Sodium Chloride) 50.5 mls @ 100 mls/hr IV ONETIME ONE Stop: 09/18/18 21:05 Last Admin: 09/18/18 21:00 Dose: 100 mls/hr Methylergonovine Maleate (Methergine) 0.2 mg IM Q4H STA Stop: 09/18/18 19:12 Last Admin: 09/18/18 19:43 Dose: 0.2 mg Metoclopramide HCl (Reglan) 10 mg IVPUSH ONETIME ONE Stop: 09/18/18 06:31 Last Admin: 09/18/18 14:54 Dose: Not Given Misoprostol (Cytotec) Confirm Administered Dose 600 mcg .ROUTE .STK-[place] ONE Stop: 09/18/18 18:36 Last Admin: 09/18/18 19:45 Dose: Not Given Misoprostol (Cytotec) 600 mcg PO BID STA Stop: 09/18/18 19:12 Last Admin: 09/18/18 19:42 Dose: 600 mcg Nalbuphine HCl (Nubain) 10 mg IVPUSH Q2H PRN PRN Reason: Pain Ondansetron HCl (Zofran) 4 mg IVPUSH Q4H PRN PRN Reason: Nausea/Vomiting Last Admin: 09/18/18 19:42 Dose: 4 mg Ondansetron HCl (Zofran) 4 mg IVPUSH ONETIME PRN PRN Reason: Nausea/Vomiting Ondansetron HCl (Zofran) Confirm Administered Dose 4 mg .ROUTE .[facility]-[place] ONE Stop: 09/18/18 22:58 Last Admin: 09/19/18 01:49 Dose: Not Given Sodium Chloride (Saline Flush) 10 ml FLUSH ASDIRECTED PRN PRN Reason: Keep Vein Open Tranexamic Acid (Cyklokapron) 1,000 mg IVPUSH ONETIME ONE Stop: 09/18/18 19:12 Last Admin: 09/18/18 19:44 Dose: 1,000 mg
[2018-09-20] MEDS: buPROPion 150 MG Tab.ER PO SCH (08:58)
[2018-09-20] MEDS: Citalopram 20 MG Tab PO SCH (08:58)
[2018-09-20 09:03] VITALS: BP 100/53
--- NOTE | 2018-09-20 11:50 | PCM48HPAN ---
Post Anesthesia Note - EVALUATION WITHIN 48HRS OF ANESTHETIC Vital Signs in Normal Range: Yes Patient Participated in Evaluation: Yes Respiratory Function Stable: Yes Airway Patent: Yes Cardiovascular Function Stable: Yes Hydration Status Stable: Yes Pain Control Satisfactory: Yes Nausea and Vomiting Control Satisfactory: Yes Mental Status Recovered: Yes
== END 2018-09-20 12:40 | disposition home or self-care (01) | DRG 806 ==
LOC: JD.OB 05:36 → JD.OBCHECK 05:36 → JD.OB 07:00 → EDSTATUS 08:00 → OBSVTOIN 18:26 → JD.OB 18:27
PROVIDERS: ADMIT Obstetrics & Gynecology; ATTEND Obstetrics & Gynecology
PROC: 10E0XZZ Delivery of Products of Conception, External Approach (ICD-10-PCS; principal; 2018-09-18)
PROC: 10907ZC Drainage of Amniotic Fluid, Therapeutic from Products of Conception, Via Natural or Artificial Opening (ICD-10-PCS; 2018-09-18)
PROC: 3E033VJ Introduction of Other Hormone into Peripheral Vein, Percutaneous Approach (ICD-10-PCS; 2018-09-18)
PROC: 0HQ9XZZ Repair Perineum Skin, External Approach (ICD-10-PCS; 2018-09-18)
PROC: 10H07YZ Insertion of Other Device into Products of Conception, Via Natural or Artificial Opening (ICD-10-PCS; 2018-09-18)
PROC: 4A1HXCZ Monitoring of Products of Conception, Cardiac Rate, External Approach (ICD-10-PCS; 2018-09-18)
DX: O99.344 Other mental disorders complicating childbirth (principal); O72.1 Other immediate postpartum hemorrhage; Z37.0 Single live birth; F32.9 Major depressive disorder, single episode, unspecified; F41.9 Anxiety disorder, unspecified; O69.81X0 Labor and delivery complicated by cord around neck, without compression, not applicable or unspecified; O70.0 First degree perineal laceration during delivery; O76 Abnormality in fetal heart rate and rhythm complicating labor and delivery; Z3A.39 39 weeks gestation of pregnancy
CPT/HCPCS: 01967; 36415; 36600; 51701; 51702; 59025; 59409; 82803; 85025; 85027; 86592; 86850; 86900; 86901; A9270-GY; J0690; J1170; J2210; J2405; J2550; J2590; J3010; J7050; J7120